=== PATIENT | female | born 1950 | race Caucasian/White ===

== ENCOUNTER 2018-08-24 22:26 | Emergency (ER) | payer MEDICARE, MEDICAID ==
[2018-08-24 22:36] VITALS: BP 144/77; PULSE 83; RESP 18; TEMP 98.5; O2SAT 96
[2018-08-24] MEDS ORDERED: Promethazine/Cod 6.25mg-10mg/5ml Syr UD PO STA (23:12)
[2018-08-24] MEDS ORDERED: Albuterol 0.083% Inhal Sol (2.5 mg/3 mL) UD IH STA (23:12)
[2018-08-24] MEDS ORDERED: Albuterol 0.083% Inhal Sol (2.5 mg/3 mL) UD ONE (23:16)
[2018-08-24] MEDS ORDERED: Promethazine DM 6.25 mg-15 mg/5 ml Syrup ONE (23:18)
--- NOTE | 2018-08-24 23:25 | C.PDOC ---
History Of Present Illness 68 year old female presents to the ED c/o cough, cold and congestion since Sunday. Patient reports symptoms worsened associated with chest congestion and intermittent SOB. Patient states she took OTC Robitussin DM with no relief. Patient denies fever, chills, headache, rash, vomit, diarrhea, recent travel, sick contacts. Time Seen by Provider: 08/24/18 22:46 Chief Complaint (Nursing): Cough, Cold, Congestion History Per: Patient History/Exam Limitations: no limitations Onset/Duration Of Symptoms: Days Current Symptoms Are (Timing): Still Present Location Of Pain: Throat, Sinus/es Sick Contacts (Context): None Associated Symptoms: Cough, Sinus Drainage, Nasal Congestion. denies: Fever, Sore Throat Ear Symptoms: Bilateral: None Recent travel outside of the [place]: No Additional History Per: Patient Past Medical History Reviewed: Historical Data, Nursing Documentation, Vital Signs Vital Signs: Last Vital Signs Temp 98.5 F 08/24/18 22:34 Pulse 83 08/24/18 22:34 Resp 18 08/24/18 22:34 BP 144/77 08/24/18 22:34 Pulse Ox 96 08/24/18 22:34 Primary Care Provider: Non [facility] Provider, - Medical History PMH: Diabetes, HTN, Osteoporosis Denies: Chronic Kidney Disease Surgical History: No Surg Hx Family History: States: Unknown Family Hx - Social History Hx Tobacco Use: No Hx Alcohol Use: No Hx Substance Use: No - Immunization History Hx Tetanus Toxoid Vaccination: No Hx Influenza Vaccination: Yes Hx Pneumococcal Vaccination: No Review Of Systems Constitutional: Negative for: Fever, Chills ENT: Positive for: Nose Discharge, Nose Congestion Respiratory: Positive for: Cough, Shortness of Breath Gastrointestinal: Negative for: Nausea, Vomiting, Abdominal Pain Skin: Negative for: Rash Neurological: Negative for: Weakness, Numbness, Headache Physical Exam - Physical Exam Appears: Non-toxic, No Acute Distress Skin: Normal Color, Warm, Dry Head: Atraumatic, Normacephalic Eye(s): bilateral: Normal Inspection (tearing ) Ear(s): Bilateral: Normal Nose: No Discharge Oral Mucosa: Moist Throat: Normal, No Erythema, No Exudate Neck: Normal ROM, Supple Chest: Symmetrical Cardiovascular: Rhythm Regular Respiratory: Normal Breath Sounds, No Rales, No Rhonchi, No Wheezing Extremity: Normal ROM, No Tenderness Neurological/Psych: Oriented x3, Normal Speech, Normal Cognition Gait: Steady ED Course And Treatment O2 Sat by Pulse Oximetry: 96 (ON RA) Pulse Ox Interpretation: Normal Progress Note: Plan: - Nebulizer albuterol. - Saline nebulizer. - Phenergan 5 ml PO. - Prednisone 60 mg PO. Patient requesting nebulizer treatment, reports having similar symptoms few years ago and having a nebulizer treatment helped. Patient reports improvement of symptoms after medciations were given. Patient advised to follow up with PMD. Disposition Counseled Patient/Family Regarding: Diagnosis, Need For Followup, Rx Given - Disposition Disposition: HOME/ ROUTINE Disposition Time: 23:18 Condition: STABLE Additional Instructions: Increase PO fluids/ Decrease dairy Take medications as directed Return to ER if worse Prescriptions: Benzonatate [Tessalon Perles] 200 mg PO TID #14 sgl Cetirizine HCl [Zyrtec] 10 mg PO DAILY #14 capsule Ibuprofen [Motrin] 600 mg PO Q6H #20 tab Instructions: Upper Respiratory Infection (ED) Forms: [employer] ([place]) Print Language: GERMAN - Clinical Impression Clinical Impression: Upper respiratory infection - PA / [employer] / Resident Statement MD/DO has reviewed & agrees with the documentation as recorded. - Scribe Statement The provider has reviewed the documentation as recorded by the Scribe Reza Faye All medical record entries made by the Scribe were at my direction and personally dictated by me. I have reviewed the chart and agree that the record accurately reflects my personal performance of the history, physical exam, m edical decision making, and the department course for this patient. I have also personally directed, reviewed, and agree with the discharge instructions and disposition.
== END 2018-08-24 23:53 | disposition home or self-care (01) ==
LOC: C.ER 22:26
DX: J06.9 Acute upper respiratory infection, unspecified (principal)